=== PATIENT | male | born 2000 | race Caucasian/White ===

== ENCOUNTER 2024-01-21 01:12 | Emergency (ER) | payer OTHER ==
[~2024-01-21] VITALS: Ht 170.2 cm; Wt 73.0 kg
[2024-01-21 01:19] VITALS: O2SAT 98
[2024-01-21] MEDS ORDERED: IBUP-2029 MT (03:18)
[2024-01-21] MEDS ORDERED: METH-653 MT (03:18)
[2024-01-21] MEDS: METHOCARBAMOL 500MG TABLET PO ONE (03:21)
[2024-01-21] MEDS: IBUPROFEN 600MG TABLET PO ONE (03:21)
[2024-01-21 03:48] VITALS: BP 137/76; PULSE 77; RESP 18; TEMP 36.89184; O2SAT 98
== END 2024-01-21 04:01 | disposition home or self-care (01) ==
LOC: ER 01:12
DX: S43.402A Unspecified sprain of left shoulder joint, initial encounter (principal); V49.9XXA Car occupant (driver) (passenger) injured in unspecified traffic accident, initial encounter; Y93.89 Activity, other specified; Y92.89 Other specified places as the place of occurrence of the external cause; Y99.8 Other external cause status
CPT/HCPCS: 73030; 73080; 73110; 99284